=== PATIENT | male | born 1990 | race Caucasian/White ===

== ENCOUNTER → 2021-06-19 18:28 | Outpatient (CLI) | payer OTHER, SELFPAY | PROVIDERS: Visit Provider Urology | DX: Z01.812 Encounter for preprocedural laboratory examination (principal); Z11.52 Encounter for screening for COVID-19; Z30.2 Encounter for sterilization | CPT/HCPCS: C9803; U0003; U0005 ==

== ENCOUNTER 2021-06-20 08:32 | Day surgery (SDC) | payer OTHER, SELFPAY ==
[2021-06-18 12:50] VITALS: BMI 24.3
[2021-06-20 08:47] VITALS: BP 123/84; PULSE 75; RESP 16; TEMP 36.7; O2SAT 99
[2021-06-20 09:43] VITALS: BP 126/79; PULSE 70; RESP 20; TEMP 36.5; O2SAT 100
--- NOTE | 2021-06-20 12:38 | [facility].OPNOTE ---
Date of procedure: 06/20/21 Pre-op Diagnosis:: Sterilization Post-op Diagnosis:: Sterilization Procedure performed:: Vasectomy Surgeon:: Twin Nicolas MD Anesthesia: local Estimated blood loss (mL): 5 Clinical Note:: 30-year-old white male presents for his vasectomy today. Operative findings:: Physical examination reveals normal testicles. Vasectomy went well without complication. Operative note:: Patient taken to the vasectomy suite after informed consent was obtained. On the stretcher he was prepped and draped in the standard surgical fashion. The left vas was identified and brought up to the midline raphae between my thumb and index finger. Local anesthetic was placed in the midline raphae and around the left vas. A midline incision was then made and a tenaculum was used to grasp the vas and it was brought up through the incision. The basal sheath was incised and the vas proper dissected from its surrounding adventitial tissue. 1 clip was placed distally and 2 clips were placed proximally. A 1 cm segment was excised and the basal lumens were cauterized. Hemostasis achieved of the surrounding structures and the vas dropped back into the left hemiscrotum. The right vas was identified and brought up through the same incision. Local anesthetic was placed and the identical procedure was performed as on the left side. The right vas was dropped back into the hemiscrotum and hemostasis achieved. A 3-0 chromic was placed in a horizontal mattress fashion. Compression dressing applied. Patient tolerated the procedure well there are no complications. Condition: stable Disposition: same day Specimens:: Vas segments were not sent Complications:: None
== END 2021-06-20 10:00 | disposition home or self-care (01) ==
LOC: OUTP 08:36
PROVIDERS: PCP Internal Medicine Addiction Medicine; Visit Provider Urology
PROC: (CPT 55250; principal; 2021-06-20 09:00)
DX: Z30.2 Encounter for sterilization (principal); F32.9 Major depressive disorder, single episode, unspecified; Z79.899 Other long term (current) drug therapy
CPT/HCPCS: 55250

== ENCOUNTER → 2021-08-15 17:55 | Outpatient (CLI) | payer OTHER, SELFPAY ==
[2021-08-15 21:51] LABS: Motility Quality Immotile Sperm (Mod-Rapid); Semen Viscosity Watery (Normal); Sperm Count 0 mil/mm3 (20-160); Sperm Motility 0 % (50-90); WBCs,Semen Trace
[2021-08-15 21:52] LABS: 3Hr Motility Quality Immotile Sperm (Mod-Rapid); 3Hr Sperm Motility 0 % (50-60)
== END ==
PROVIDERS: Visit Provider Urology
DX: Z98.52 Vasectomy status (principal)
CPT/HCPCS: 89320